=== PATIENT | female | born 1980 | race Caucasian/White ===

== ENCOUNTER 2018-09-29 14:53 | Inpatient (IN) | payer MEDICAID ==
[~2018-09-29] VITALS: Ht 165.1 cm; Wt 73.1 kg
[2018-09-29 15:09] VITALS: Ht 165.1 cm; Wt 73.1 kg
[2018-09-29 18:26] LABS: PLATELET COUNT 136 x10^3mcL (130-400)
--- NOTE | 2018-09-29 18:30 | NUR ---
ASSISTED PT TO RESTROOM, TO PROVIDE FRESH URINE SAMPLE, PT TOLERATED WELL.
[2018-09-29 18:34] LABS: RED CELL DISTRIBUTION WIDTH 26.4 % (11.5-14.5)
[2018-09-29 18:36] LABS: CARBON DIOXIDE 23.7 mmol/L (21-32); CHLORIDE SERUM 96 mmol/L (98-107); CREATININE SERUM 0.6 mg/dL (0.6-1.0); GFR1 > 60 mL/min; GLUCOSE SERUM 117 mg/dL (74-106); POTASSIUM SERUM 3.2 mmol/L (3.5-5.1); SODIUM SERUM 129 mmol/L (136-145)
--- NOTE | 2018-09-29 18:38 | NUR ---
ELIZABETH BRASWELL AT BEDSIDE FOR EKG.
--- NOTE | 2018-09-29 18:41 | NUR ---
DR AIKEN MADE AWARE OF COLOR OF PT'S URINE, STS OK TO SEND TO LAB.
[2018-09-29 18:42] LABS: ALKALINE PHOSPHATASE 80 U/L (46-116); ALT/SGPT 24 U/L (14-59); AST/SGOT 97 U/L (15-37); TOTAL PROTEIN, SERUM 7.5 g/dL (6.4-8.2)
[2018-09-29 18:43] LABS: ALBUMIN 1.9 g/dL (3.4-5.0)
[2018-09-29 18:45] LABS: BILIRUBIN TOTAL 14.1 mg/dL (0.20-1.00)
[2018-09-29 19:00] LABS: BAND NEUTROPHIL 11 % (0-10); BASOPHIL 0 % (0-2); MONOCYTE 2 % (0-7); SEGMENTED NEUTROPHILS 76 % (37-75); ovalocyte/elliptocyte 1+; rbc morphology (normal/abnorm) ABNORMAL (NORMAL); tear drop cell (dacryocyte) 1+
[2018-09-29 19:02] LABS: PLATELET MORPHOLOGY PLATELETS DECREASED
[2018-09-29 19:11] LABS: UA SPECIFIC GRAVITY <=1.005 (1.005-1.035); microscopic required? YES; urine erythrocyte NEGATIVE (NEGATIVE)
--- NOTE | 2018-09-29 19:14 | NUR ---
REPORT FROM MARTIN ENNIS TO ASSUME CARE OF PT
--- NOTE | 2018-09-29 19:15 | NUR ---
LAB AT BEDSIDE FOR BLOOD DRAW
--- NOTE | 2018-09-29 19:21 | NUR ---
REPORT GIVEN TO MARTIN ROMERO TO ASSUME CARE OF PT.
--- NOTE | 2018-09-29 19:36 | NUR ---
PT RETURNED FROM CT
--- NOTE | 2018-09-29 19:43 | NUR ---
PT AMBULATED TO RESTROOM W/STEADY GAIT. NO S/S OF DISTRESS. RESP E/U. AT BEDSIDE. PT STS SHE IS CURRENTLY IN 710 PAIN IN BILATERAL LEGS. MADE AWARE. CALL LIGHT W/IN REACH. WILL CONTINUE TO MONITOR.
--- NOTE | 2018-09-29 20:53 | NUR ---
PT LAYING ON GURNEY IN POSITION OF COMFORT. TALKING W/FAMILY ON THE PHONE. NO S/S OF DISTRESS. RESP E/U. PT REQUEST BEDSIDE COMODE. PT IS ABLE TO AMBULATE W/STEADY GAIT OFF BED. COMFORT MEASURES IMPLEMENTED. CALL LIGHT W/IN REACH. WILL CONTINUE TO MONITOR.
[2018-09-29] MEDS ORDERED: NATURAL IRON65 MG PO (21:58)
--- NOTE | 2018-09-29 22:07 | NUR ---
PT MEDICATED PER ORDER PT VERBALIZED UNDERSTANDING OF MEDICATION TEACHING. SEE EMAR FOR DETAILS.
--- NOTE | 2018-09-29 22:09 | NUR ---
PT LAYING ON GURNEY IN POSITION OF COMFORT. USING CELL PHONE. NO S/S OF DISTRESS. RESP E/U. TALKING IN FULL SENTENCES. COMFORT MEASURES IMPLEMENTED. CALL LIGHT W/IN REACH. WILL CONTINUE TO MONITOR.
[2018-09-29 22:22] LABS: MAGNESIUM 1.7 mg/dL (1.8-2.4); PHOSPHOROUS 2.7 mg/dL (2.5-4.9)
[2018-09-29 22:26] LABS: AMPHETAMINE QUAL UR NONE DETECTED (See below)
--- NOTE | 2018-09-29 22:28 | NUR ---
REPORT GIVEN TO MARTIN TUCKER TO ASSUME CARE OF PT.
--- NOTE | 2018-09-29 22:54 | NUR ---
PT TRANSFERRED TO TELE FLOOR ACCOMPANIED BY NURSE AND EMT. NO S/S OF DISTRESS. RESP E/U. PT CONNECTED TO MONITOR DURING TRANSFER. IV SITE CLEAR NO S/S OF INFILTRATION, PT DENIES PAIN OR DISCOMFORT. RN AT BEDSIDE TO ASSUME CARE OF PT.
[2018-09-29 22:59] VITALS: BP 96/58
--- NOTE | 2018-09-29 23:03 | NUR ---
RECEIVED PT FROM ED VIA MANSI. ORIENTED PT TO ROOM AND SURROUNDINGS. IV NOTED TO LAC PATENT AND INTACT. TELE 16 PLACED ON PT READING NSR. INSTRUCTED PT ON THE USE OF CALL LIGHT FOR ASSISTANCE. ENDORSED PT TO PRIMARY NURSE GARRETT
--- NOTE | 2018-09-29 23:20 | NUR ---
RESTING IN BED, NEW ADM. FROM ED. A/O X4. ABLE TO VERBALIZE NEEDS. ADMITTED WITH COMPLAINTS OF DIZZINESS, EDEMA TO BLE AND NAUSEA. KEPT COMFORTABLE IN BED. BLE WITH 3+ EDEMA WITH WEAK PEDAL PULSES. SKIN WARM AND DRY TO TOUCH, JAUNDICE IN COLOR. ABD. DISTENDED, BS ACTIVE, NO N/V NOTED AT THIS TIME. SR ON THE MONITOR, DENIES CP OR PRESSURE. HL TO LAC, INTACT AND PATENT. RESP. EVEN AND UNLABORED. ON ROOM AIR, NO ACUTE DISTRESS NOTED. AFEBRILE AND VITAL SIGNS STABLE.CALL LIGHT WITHIN REACH. WILL CONTINUE TO MONITOR.
[2018-09-29] MEDS ORDERED: LASIX20 MG PO (23:33)
--- NOTE | 2018-09-30 03:46 | NUR ---
EYES CLOSED , APPEARS ASLEEP, EASILY AROUSABLE. RESP. EVEN AND UNLABORED. NO ACUTE DISTRESS NOTED. WILL CONTINUE TO MONITOR.
[2018-09-30 06:00] VITALS: BP 108/59
--- NOTE | 2018-09-30 06:07 | NUR ---
AFEBRILE AND VITAL SIGNS STABLE. RESP. EVEN AND UNLABORED. ON ROOM AIR , NO ACUTE DISTRESS NOTED. DUE MEDS GIVEN ORDERED, JUANITA. WELL. HL TO LAC, INTACT AND PATENT. NO COMPLAINTS NOTED .VOIDING FREELY. KEPT COMFORTABLE.WILL CONTINUE TO MONITOR.
[2018-09-30 06:35] LABS: CALCIUM 7.7 mg/dL (8.5-10.1); CARBON DIOXIDE 25.8 mmol/L (21-32); CHLORIDE SERUM 97 mmol/L (98-107); CREATININE SERUM 0.6 mg/dL (0.6-1.0); GFR1 > 60 mL/min; GLUCOSE SERUM 87 mg/dL (74-106); SODIUM SERUM 134 mmol/L (136-145)
[2018-09-30 06:39] LABS: POTASSIUM SERUM 2.9 mmol/L (3.5-5.1)
[2018-09-30 06:46] LABS: PLATELET COUNT 127 x10^3mcL (130-400); RED CELL DISTRIBUTION WIDTH 26.5 % (11.5-14.5)
--- NOTE | 2018-09-30 06:48 | NUR ---
DR PICKARD MADE AWARE OF ABNORMAL LAB RESULT . (K+ 2.9) . WILL ENDORSE TO INCOMING NURSE.
--- NOTE | 2018-09-30 07:06 | NUR ---
REPORT TAKEN FROM DIGITAL MEDIA BUYER NURSE AT THE BEDSIDE, PT ALERT, AMBULATING TO THE REST ROOM, IN NAD, WILL CONTINUE TO MONITOR.
--- NOTE | 2018-09-30 07:40 | NUR ---
PHARMACY CALLED TO VERIFY MEDS FOR LOW POTTASIUM, PHARMACY REPORT THAT MEDICATION WILL BE MIXED AND BROUGHT TO MED ROOM AT 0800
[2018-09-30 09:00] LABS: ATYPICAL LYMPH 1 %; BAND NEUTROPHIL 1 % (0-10); BASOPHIL 1 % (0-2); MONOCYTE 7 % (0-7); SEGMENTED NEUTROPHILS 82 % (37-75); rbc morphology (normal/abnorm) ABNORMAL (NORMAL)
[2018-09-30 09:01] LABS: PLATELET MORPHOLOGY PLATELETS DECREASED; ovalocyte/elliptocyte 1+
[2018-09-30 09:09] VITALS: BP 96/53
[2018-09-30 13:11] VITALS: BP 113/33
--- NOTE | 2018-09-30 14:15 | NUR ---
PT REPORTS VOMITING, NAUSEA, AND ABD PAIN AT THIS TIME. PROVIDER PAGED, WILL CONTINUE TO MONITOR.
--- NOTE | 2018-09-30 14:40 | NUR ---
1415: PT REPORTED VOMITING AND NAUSEA, AND ABD PAIN. 1420 VITALS ASSESSED BP 88/55, SAT 95 ON 2L NC, PULSE 104 TEMP 991. DOCTOR CALLED TO EVALUATE PT. PT REPORTS COLDNESS, SOB, NAUSEA. 1425: VITALS ASSESSED, BP 96/46, SAT 85, PLULSE 60. PT ALERT AND ORIENTED, REPORTING HEADACHE, NAUSEA, AND SOB. DOCTOR AT THE BEDSIDE, O2 INCREASED TO 5L NC, 1000ML BOLUS STARTED PER PROVIDER ORDER. 1430: VITALS ASSESSED, BP 104/78, SAT 97 ON 5L NC, PULSE 112. PT REPORTS CHILLS, AND LOWER ABD CRAMPING. 1435: VITALS ASSESSED, BP 94/40, PULSE 106, SAT 99 ON 5L VIA NC, TEMP 99.6. PT DENIED SOB, REPORTS CRAMPS IN LOWER ABD. 1444: VITALS ASSESSED, BP 100/39, PULSE 104, SAT 100 ON 5L O2 VIA NC. PT DENIED SOB OR CHEST PAIN, LOWER ABD PAIN CONTINUES 01/26. WILL CONTINUE TO MONITOR. 1450: VITALS ASSESSED, BP 91/45, PULSE 102, SAT 99 ON 5L O2 VIA NC. PT DENIED HEADACHE, CP, AND SOB. REPORTS LOWER ABD CRAPMING. DOCTOR AWARE. WILL CONTINUE TO MONITOR.
[2018-09-30 15:39] VITALS: BP 96/26
--- NOTE | 2018-09-30 15:40 | NUR ---
REPORT TO DR. PICKARD, REGARDING THE B/P 96/26 MAP 49 AFTER NS BOLUS, MADE AWARE, STATE WAIT FOR 30 MIN, HE NEED TO TALK TO DR. DUARTE, WILL CALL BACK. CONTINUE TO MONITOR THE PT.
[2018-09-30 17:31] VITALS: BP 96/42
--- NOTE | 2018-09-30 19:10 | NUR ---
REC'D PT FROM DAY NURSE. FAMILY AT BEDSIDE. PT RESTING IN BED. AAOX4, SPEECH CLEAR, FOLLOWS COMMANDS. YELLOW SCLERA. TELE 16. DENIES CP, DIZZINESS, OR PALPITATIONS. DENIES RESP DISTRESS OR SOB. BREATHING EVEN/UNLABORED ON RA, SPO2 95%. PITTING EDEMA TO BLE, SCDS APPLIED AND ELEVATED WITH PILLOWS. ABD SOFT/DISTENDED. C/O LLQ AND RUQ TENDERNESS. DENIES PAIN AT THIS TIME. STATES SHE THOUGHT SHE STARTED MENSTRUATING BUT ACTUALLY NOT. PT PT, SHE HAS NOT VOIDED SINCE 1 PM. STATES SHE FEELS LIKE SHE NEEDS TO VOID BUT UNABLE TO WHEN SHE TRIES. WILL BLADDER SCAN. AMBULATORY. ECCHYMOSIS TO BLE. SKIN JAUNDICED. IV TO LAC FLUSHED AND PATENT, SITE WNL. CALL LIGHT WITHIN REACH, BED AT LOWEST POSITION. WILL CONTINUE TO MONITOR.
--- NOTE | 2018-09-30 19:23 | NUR ---
REPORT GIVEN TO SUMMER SCHOOL COORDINATOR NURSE AT THE BEDSIDE, PT AWAKE ALERT AND ORIENTED X 4 AT THIS TIME WITH FAMILY AT THE BEDSIDE. EVENTS REPORTS SUMMER SCHOOL COORDINATOR NURSE, WELL A PATIENTS CURRENT CONDITION. PT INFORMED OF PLAN FOR THE EVENING, AND VERBALIZED UNDERSTANDING. ROUNDS COMPLETED, CARE ENDORSED.
--- NOTE | 2018-09-30 20:00 | NUR ---
PT BLADDER SCANNED: 150 ML. PT DOES NOT FEEL THE NEED TO VOID CURRENTLY. REPORTS MILD PAIN. STATES SHE WOULD LIKE TO TRY AND VOID LATER. WILL RESCAN IF PT DOES NOT VOID WITHIN THREE HOURSE.
[2018-09-30 21:45] VITALS: BP 94/57
--- NOTE | 2018-09-30 22:31 | NUR ---
PT REPORTS VOIDING A SMALL AMT IN THE TOILET. HAT APPLIED AND INSTRUCTED TO LEAVE URINE IN THERE. C/O ABD CRAMPING 11/25. OFFERED TRAMADOL BUT PT REFUSED. STATES SHE THINKS SHE MIGHT HAVE HAD AN ALLERGIC REACTION, OR IT MAY HAVE BEEN THE HAMBURGER SHE ATE. DR. BAZAN MADE AWARE. WILL GIVE TORADOL ONCE VERIFIED BY PHARMACY. AT BEDSIDE. WILL CONTINUE TO MONITOR.
--- NOTE | 2018-10-01 00:19 | NUR ---
BLADDER RESCANNED: 25 ML. PT HAS VOIDED A TOTAL OF 3X. 2X IN THE HAT- ONLY 30 ML OUT. NO BLADDER DISTENTION NOTED AND PT DOES NOT HAVE NEED TO VOID. WILL CONTINUE TO MONITOR.
--- NOTE | 2018-10-01 02:13 | NUR ---
PT RESTING IN BED WITH EYES CLOSED. NO SIGNS OF DISTRESS OR PAIN NOTED. BREATHING EVEN/UNLABORED ON RA. AT BEDSIDE ON RECLINER. CALL LIGHT WITHIN REACH, BED AT LOWEST POSITION. WILL CONTINUE TO MONITOR.
[2018-10-01 05:20] VITALS: BP 95/43
--- NOTE | 2018-10-01 06:04 | NUR ---
PT VOIDED ONLY 30 ML THE WHOLE SHIFT. DARK NE URINE, VERY CONCENTRATED. PT STATES SHE IS MENSTRUATING, REPORTS NE COLORED BLOOD. MODERATE OUTPUT. USING A PAD, DENIES CLOTTING. BLADDER SCANNED: 10 ML. PT DOES NOT HAVE URGE TO VOID. BP 88/55, MAP 66, HR 81. C/O 7/10 ABD CRAMPING, TORADOL GIVEN. DR. BAZAN MADE AWARE OF LOW BP AND MINIMAL URINE OUTPUT. NO CHANGES IN ORDERS AT THIS TIME. CALL LIGHT WITHIN REACH, BED AT LOWEST POSITION, AT BEDSIDE. WILL ENDORSE TO DAY NURSE.
[2018-10-01 06:12] VITALS: BP 88/55
[2018-10-01 06:26] LABS: CALCIUM 7.7 mg/dL (8.5-10.1); CARBON DIOXIDE 22.7 mmol/L (21-32); CREATININE SERUM 1.4 mg/dL (0.6-1.0); MAGNESIUM 1.8 mg/dL (1.8-2.4); PHOSPHOROUS 2.6 mg/dL (2.5-4.9); POTASSIUM SERUM 3.6 mmol/L (3.5-5.1)
--- NOTE | 2018-10-01 06:37 | NUR ---
SPOKE TO DR. PICKARD. UPDATE GIVEN INCLUDING CURRENT BP 88/55 (AYSMPTOMATIC) AND MINIMAL URINE OUTPUT.
[2018-10-01 07:02] LABS: PLATELET COUNT 114 x10^3mcL (130-400); RED CELL DISTRIBUTION WIDTH 27.6 % (11.5-14.5)
--- NOTE | 2018-10-01 07:15 | NUR ---
AAO X4.DENIES ANY PAIN/DISCOMFORT.LUNGS CLEAR.ON SR ON THE MONITOR.HR=84.IV SALINE LOCKED.SKIN JAUNDICED.BLE WITH 3+ EDEMA.CALL LIGHT WITHIN REACH.INSTRUCTED TO CALL FOR ANY PAIN/DISCOMFORT.WILL CONTINUE TO MONITOR PT.
[2018-10-01 08:34] LABS: BAND NEUTROPHIL 3 % (0-10); BASOPHIL 0 % (0-2); MONOCYTE 10 % (0-7); SEGMENTED NEUTROPHILS 75 % (37-75)
[2018-10-01 08:35] LABS: rbc morphology (normal/abnorm) ABNORMAL (NORMAL); target cell (codocyte) 1+
[2018-10-01 08:36] LABS: PLATELET MORPHOLOGY PLATELETS NORMAL
[2018-10-01 08:59] VITALS: BP 93/55
[2018-10-01 12:19] LABS: BILIRUBIN DIRECT 10.68 mg/dL (0.0-0.2); TOTAL PROTEIN, SERUM 6.6 g/dL (6.4-8.2)
[2018-10-01 12:24] LABS: ALBUMIN 1.8 g/dL (3.4-5.0); BILIRUBIN TOTAL 13.54 mg/dL (0.20-1.00)
[2018-10-01 12:35] VITALS: BP 105/51
--- NOTE | 2018-10-01 14:21 | NUR ---
GAVE TORADOL ORDERED FOR C/O ABD'L PAIN AT 7/10 PAIN SCALE.
--- NOTE | 2018-10-01 14:51 | NUR ---
RECHECKED PAIN LEVEL.PT SLEEPING COMFORTABLY.NO SIGNS OF PAIN.
[2018-10-01 18:05] VITALS: BP 105/51
--- NOTE | 2018-10-01 18:54 | NUR ---
TOTAL URINE XCRKDT=137 ML.WILL ENDORSE TO NEXT SHIFT.
--- NOTE | 2018-10-01 19:30 | NUR ---
RECIEVED PATIENT AT START OF SHIFT A/O X4. PATIENT APPEARS JAUNDICE. NO SOB ON RA. LUNGS CTAB. ON TELE 16 NSR. +2 PITTING EDEMA NOTED TO BLE. PATIENT STATES SHE IS ON HER PERIOD AND IS HAVING MENSTRUAL CRAMPS 8/10 PAIN. WILL MEDICATE WITH TORADOL PER EMAR. IV IS SALINE LOCKED AND PATENT. BED LOCKED AND IN LOWEST POSITION. CALL LIGHT AND BEDSIDE TABLE WITHIN REACH. WILL CONTINUE TO MONITOR.
[2018-10-01 20:55] VITALS: BP 105/54
--- NOTE | 2018-10-01 20:59 | NUR ---
PATIENT GIVEN TORADOL IV PER EMAR FOR 8/10 PAIN FROM MENSTRUAL CRAMPS.
--- NOTE | 2018-10-02 03:54 | NUR ---
PATIENT GIVEN TORADOL 4 MG IVP FOR 9/10 PAIN FROM MENSTRUAL CRAMPS.
[2018-10-02 05:53] VITALS: BP 112/57
[2018-10-02 06:16] LABS: CALCIUM 8.4 mg/dL (8.5-10.1); CREATININE SERUM 1.3 mg/dL (0.6-1.0); MAGNESIUM 1.9 mg/dL (1.8-2.4); PHOSPHOROUS 3.1 mg/dL (2.5-4.9); POTASSIUM SERUM 3.5 mmol/L (3.5-5.1)
--- NOTE | 2018-10-02 06:31 | NUR ---
PATIENT REMOVED FROM TELE TO TAKE A SHOWER.
[2018-10-02 06:34] LABS: PLATELET COUNT 125 x10^3mcL (130-400); RED CELL DISTRIBUTION WIDTH 27.5 % (11.5-14.5)
--- NOTE | 2018-10-02 06:57 | NUR ---
PATIENT STILL IN SHOWER. IV IS WRAPPED AND WATER PROOF. WILL ENDORSE CARE TO MORNING NURSE.
--- NOTE | 2018-10-02 07:10 | NUR ---
RECIEVED PATIENT FROM METAL CASTING TRADES WORKER NURSE. PATIENT IS AWAKE, ALERT AND ORIENTED. TELE# 16, SR, HR 89. DENIES CP AND PRESSURE. BREATHING EVEN AND UNLABORED ON ROOM AIR. FLUID RESTRICT IN PLACE: 1200/DAILY. IV SITE CLEAR AND FREE OF S/S ERYTHEMA. CALL LIGHT WITHIN EASY REACH. WILL CONTINUE PLAN OF CARE.
[2018-10-02 09:03] LABS: BAND NEUTROPHIL 4 % (0-10); BASOPHIL 0 % (0-2); MONOCYTE 10 % (0-7); SEGMENTED NEUTROPHILS 74 % (37-75)
[2018-10-02 09:05] LABS: PLATELET MORPHOLOGY PLATELETS DECREASED; ovalocyte/elliptocyte 1+; rbc morphology (normal/abnorm) ABNORMAL (NORMAL); tear drop cell (dacryocyte) 1+
[2018-10-02 09:32] VITALS: BP 103/57
--- NOTE | 2018-10-02 12:48 | NUR ---
PATIENT RESTING WITH BOTH EYES CLOSED, AROUSABLE. DENIES PAIN AND DISCOMFORT. CALL LIGHT WITHIN EASY REACH. WILL CONTINUE PLAN OF CARE.
[2018-10-02 13:41] VITALS: BP 114/61
--- NOTE | 2018-10-02 18:31 | NUR ---
PATIENT RESTING IN BED WITH FAMILY AT THE BEDSIDE. DENIES PAIN AND DISCOMFORT. STRICT I/O'S REMAIN IN PLACE. CALL LIGHT WITHIN EASY REACH. WILL ENDORSE PATIENT CARE TO PRODUCT LEAD NURSE.
[2018-10-02 19:40] VITALS: BP 112/64
--- NOTE | 2018-10-02 20:00 | NUR ---
RECEIVED PT IN BED, A/O X4. ABLE TO VERBALIZE NEEDS. DENIES HEADACHE/DIZZINESS. RESP. EVEN AND UNLABORED. ON ROOM AIR, NO ACUTE DISTRESS NOTED. SR ON THE MONITOR, DENIES CP OR ANY DISCOMFORT AT THIS TIME. AFEBRILE AND VITAL SIGNS STABLE. HL TO LAC, INTACT AND PATENT. ABD. DISTENDED AND SOFT, NO N/V NOTED. AMBULATORY. ASSISTED WITH HS CARE. CALL LIGHT WITHIN REACH. WILL CONTINUE TO MONITOR.
--- NOTE | 2018-10-02 22:27 | NUR ---
COMPLAINED OF GEN. BODY PAIN , 10/26, MEDICATED WITH TORADOL IV ORDERED. WILL CONTINUE TO MONITOR.
--- NOTE | 2018-10-03 02:04 | NUR ---
EYES CLOSED, APPEAR ASLEEP, EASILY AROUSABLE. RESP. EVEN AND UNLABORED. NO ACUTE DISTRESS NOTED. WILL CONTINUE TO MONITOR.
--- NOTE | 2018-10-03 04:57 | NUR ---
AWAKE, COMPLAINING OF ABD. PAIN, 6/10, MEDICATED WITH TORADOL IV ORDERED. WILL CONTINUE TO MONITOR.
[2018-10-03 05:39] VITALS: BP 112/71
--- NOTE | 2018-10-03 06:01 | NUR ---
AFEBRILE AND VITAL SIGNS STABLE. RESP. EVEN AND UNLABORED.NO ACUTE DISTRESS NOTED. KEPT COMFORTABLE. NO COMPLAINTS NOTED AT THIS TIME. WILL CONTINUE TO MONITOR.
[2018-10-03 07:14] LABS: CALCIUM 8.5 mg/dL (8.5-10.1); CARBON DIOXIDE 24.5 mmol/L (21-32); CREATININE SERUM 1.1 mg/dL (0.6-1.0); MAGNESIUM 1.9 mg/dL (1.8-2.4); POTASSIUM SERUM 3.4 mmol/L (3.5-5.1)
--- NOTE | 2018-10-03 07:15 | NUR ---
RECEIVED PATIENT FROM PLASTER APPLICATOR NURSE. PATIENT IS AWAKE, ALERT AND ORIENTED. ON ROOM AIR, BREATHING EVEN AND UNLABORED. TELE#16, SR, HR 84. BLE ELEVATED ON PILLOWS. STRICT I/O'S IN PLACE. IV NOTED TO LAC, SALINE LOCKED, NO S/S ERYTHEMA AT SITE. CALL LIGHT WITHIN EASY REACH. WILL CONTINUE PLAN OF CARE.
[2018-10-03] MEDS ORDERED: ALD50 PO (07:31)
[2018-10-03 07:33] LABS: PLATELET COUNT 139 x10^3mcL (130-400)
[2018-10-03 07:46] VITALS: BP 112/71
--- NOTE | 2018-10-03 09:00 | NUR ---
PATIENT DC'D HOME AT THIS TIME. AWAKE, ALERT AND ORIENTED. DENIES PAIN AND DISCOMFORT. VS STABLE AT TIME OF DC. ALL DC INSTRUCTIONS GIVEN TO PATIENT. ALL NEW PRESCRIPTIONS GIVEN. ALL QUESTIONS ANSWERED REGARDING DC. ALL PERSONAL BELONGINGS TAKEN HOME WITH PATIENT. TELE BOX REMOVED AND RETURNED TO MILITARY ANALYST. IV SITE REMOVED AND CATHETER TIP INTACT. PATIENT TAKEN DOWN TO DC OFFICE BY KELLEY MEJÍA.
[2018-10-03 14:14] LABS: BAND NEUTROPHIL 9 % (0-10); METAMYELOCTE 1 % (0-2); MONOCYTE 10 % (0-7); MYELOCYTE 1 % (0-2); SEGMENTED NEUTROPHILS 60 % (37-75)
[2018-10-03 14:15] LABS: ATYPICAL LYMPH 5 %
[2018-10-03 14:16] LABS: PLATELET MORPHOLOGY PLATELETS DECREASED; ovalocyte/elliptocyte 1+; rbc morphology (normal/abnorm) ABNORMAL (NORMAL); schistocyte (helmet cell) 1+
== END 2018-10-03 09:00 | disposition home or self-care (01) | DRG 280 ==
LOC: ED 14:53 → DU 21:45
PROVIDERS: Emergency Medicine; Internal Medicine Gastroenterology; ADMIT Internal Medicine
DX: K70.11 Alcoholic hepatitis with ascites (principal); E43 Unspecified severe protein-calorie malnutrition; K52.9 Noninfective gastroenteritis and colitis, unspecified; N94.6 Dysmenorrhea, unspecified; E87.1 Hypo-osmolality and hyponatremia; E83.42 Hypomagnesemia; E87.6 Hypokalemia; D53.9 Nutritional anemia, unspecified; R74.0 Nonspecific elevation of levels of transaminase and lactic acid dehydrogenase [LDH]; F10.20 Alcohol dependence, uncomplicated; Y90.0 Blood alcohol level of less than 20 mg/100 ml; Z68.29 Body mass index [BMI] 29.0-29.9, adult; Z87.891 Personal history of nicotine dependence
CPT/HCPCS: 36600; 82962; 83880; J0696; J1885; J1940; J2543; J2916; J3430; J3480; J3490; J7030; P9047; Q0092

== ENCOUNTER 2018-10-03 14:27 | Inpatient (IN) | payer MEDICAID ==
[~2018-10-03] VITALS: Ht 157.5 cm; Wt 72.5 kg
[~2018-10-03 14:27] MED LIST: ALD50 PO; LASIX20 MG PO; NATURAL IRON65 MG PO
[2018-10-03 14:34] VITALS: Ht 157.5 cm; Wt 72.5 kg
--- NOTE | 2018-10-03 14:39 | NUR ---
PT AMBULATED TO ROOM OB, AWAITING MD MEEHAN.
--- NOTE | 2018-10-03 15:10 | NUR ---
ASSISTED DR SERNA WITH RECTAL EXAM. PT TOLERATED WITH MILD DISCOMFORT.
--- NOTE | 2018-10-03 15:11 | NUR ---
MECHANICAL STRIPER AT BEDSIDE.
--- NOTE | 2018-10-03 15:19 | NUR ---
REPORT GIVEN TO FLAVIA Mendez RN TO ASSUME CARE OF PT.
[2018-10-03 15:44] LABS: CALCIUM 8.5 mg/dL (8.5-10.1); CARBON DIOXIDE 26.4 mmol/L (21-32); CHLORIDE SERUM 98 mmol/L (98-107); GFR1 > 60 mL/min; GLUCOSE SERUM 109 mg/dL (74-106); POTASSIUM SERUM 3.7 mmol/L (3.5-5.1); SODIUM SERUM 133 mmol/L (136-145)
[2018-10-03 15:49] LABS: ALBUMIN 2.1 g/dL (3.4-5.0); ALKALINE PHOSPHATASE 71 U/L (46-116); ALT/SGPT 32 U/L (14-59); AST/SGOT 142 U/L (15-37); TOTAL PROTEIN, SERUM 7.5 g/dL (6.4-8.2)
[2018-10-03 15:56] LABS: PLATELET COUNT 145 x10^3mcL (130-400)
[2018-10-03 16:29] LABS: BAND NEUTROPHIL 0 % (0-10); BASOPHIL 0 % (0-2); MONOCYTE 5 % (0-7); SEGMENTED NEUTROPHILS 69 % (37-75)
[2018-10-03 16:30] LABS: rbc morphology (normal/abnorm) ABNORMAL (NORMAL)
[2018-10-03 16:40] LABS: schistocyte (helmet cell) 1+
--- NOTE | 2018-10-03 16:51 | NUR ---
SANDOSTATIN IV STARTED PER MD ORDER AT 25ML/HR. PT HAD EPISODE OF NAUSEA, MEDICATED WITH ZOFRAN 4MG IVP. PT IN NO DISTRESS.
--- NOTE | 2018-10-03 17:21 | NUR ---
PT LAYING IN ED GURNEY IN POSITION OF COMFORT, A/O X4, RESPS EVEN AND UNLABORED, SKIN WARM/DRY TO TOUCH, NO S/S OF DISTRESS NOTED. COMFORT MEASURES IN PLACE, CALL LIGHT WITHIN REACH, AT BEDSIDE.
[2018-10-03 17:30] LABS: microscopic required? YES; urine erythrocyte 1+ (NEGATIVE)
--- NOTE | 2018-10-03 19:18 | NUR ---
REPORT CALLED TO VIRGINIA SALAZAR. PT TO BE ADMITTED TO ICU BED 3. PT IN NO DISTRESS.
--- NOTE | 2018-10-03 19:35 | NUR ---
PT ARRIVED TO ICU BED 3 FROM ER, ACCOMPANIED BY NU EMT AND YENY RN. PT TRANSFERRED TO BED WITH NO COMPLICATIONS, PLACED ON FULL CUSTOM FEED MILL OPERATOR HELPER AND CONTINUOUS PULSE OXIMETRY. RECEIVED PT AOX4 ABLE TO RESPOND TO COMMANDS, MAKE NEEDS KNOWN, GCS=15. PUPILS 4MM BRISK RESPONSE TO LIGHT B/L, PERRLA. NO REPORTED BRIONES, SPEECH CLEAR, NO FACIAL DROOP. TRACHEA MIDLINE, NO DRAINAGE TO EENT, NO EENT COMPLAINTS. PT HAS NOTED GENERALIZED JAUNDICE TO FACE AND BODY, ICTERUS TO BILATERAL EYES.LUNG SOUNDS CTAB, CHEST RISE/FALL SYMMETRIC, E/U BREATHING, NO ACUTE RESP DISTRESS, DENIES SOB. NO COUGH NOTED. 2L NC ATTACHED TO PT.S1/S2 SOUNDS HEARD, CHEST WALL STABLE, NO REPORT OR S/S OF CHEST PAIN.SKIN COLOR GENERALIZED JAUNDICE, CAP REFILL <3 SECONDS, PULSES MODERATE TO BUE/BLE. +3 EDEMA NOTED TO BLE. SANDOSTATIN GTT INFUSING @ 50 MCG/HR FROM ER.GEN WEAKNESS. ROM ACTIVE, NO CONTRACTURES/DEFORMITIES, PT ABLE TO TURN/REPOSITION SELF. NO JOINT SWELLING/TENDERNESS.ACTIVE BOWEL SOUNDS X4 QUADRANTS, ABD SOFT/ROUND, REPORTS PAIN ON PALPATION GENERALIZED X4 QUADRANTS. PT REPORTS BM EARLIER TODAY BLOOD TINGED.PT ABLE TO VOID USING BEDSIDE COMMODE, YELLOW URINE NOTED. NO LABIAL EDEMA/DISCHARGE NOTED OR REPORTED.SKIN INTACT, WARM/DRY TO TOUCH, ECCHYMOSIS NOTED TO BLE. IV TO RIGHT WRIST 22G, LAC 20 G, PORTS PATENT, NO S/S OF INFILTRATION, DRESSING CDI. PT NPO AT THIS TIME, NO S/S OF N/V. CALL LIGHT WITHIN REACH, BED AT LOWEST SETTING, WILL CONT TO MONITOR.
[2018-10-03 19:40] LABS: RED BLOOD CELLS 2.11 M/mm3 (4.10-5.10)
[2018-10-03 19:43] LABS: IRON 131 ug/dL (50-170); TOTAL IRON BINDING CAPACITY 157 ug/dL (250-450)
[2018-10-03 19:45] VITALS: BP 95/49
--- NOTE | 2018-10-03 20:00 | NUR ---
1 UNIT PRBC INITIATED AT THIS TIME VERIFIED BY 2 RN'S. PRE VITALS 98.4, PULSE 89, NIBP 94/57, RESP 22, PO2 99%. PT EDUCATED ON S/S OF ADVERSE REACTION FOR BLOOD TRANSFUSION AND NOTIFY NURSING TEAM IF ANY REACTIONS OCCUR, PT VERBALIZES UNDERSTANDING.
--- NOTE | 2018-10-03 20:20 | NUR ---
PT REPORTING 10/10 GENERALIZED ABD PAIN, DR. GALLEGOS MADE AWARE. WILL MEDICATE PAIN MEDICATION PER EMAR.
--- NOTE | 2018-10-03 22:54 | NUR ---
Spoke to Dr. Vernell roblero and MD stated that he will do an EGD on bed 3 at 9am in the morning. Relayed pt's condition to MD at the time. Will continue to monitor.
[2018-10-03 23:00] VITALS: BP 100/59
--- NOTE | 2018-10-03 23:00 | NUR ---
1ST UNIT BLOOD TRANSFUSION DONE AT THIS TIME, POST VITALS 98.5 ORAL, PULSE 76, NIBP 100/59, RESP 20, PO2 98%. PT DENIES ANY ADVERSE REACTIONS BLOOD TRANSFUSION AT THIS TIME. DR. GALLEGOS MADE AWARE, PER DR. RAMOS OK TO GIVE 2ND UNIT ORDERED.
--- NOTE | 2018-10-03 23:50 | NUR ---
2ND UNIT PRBC INTIATED AT THIS TIME, VERIFIED BY 2 RN'S AT BEDSIDE. PRE VITALS TEMP 98.3 ORAL, PULSE 69, NIBP 105/69, RESP 17, PO2 98% ON 2L NC. PT EDUCATED ON S/S OF ADVERSE REACTIONS, AND TO REPORT TO NURSING TEAM IF ANY REACTIONS OCCUR, PT VERBALIZES UNDERSTANDING.
[2018-10-04] VITALS (8 sets, daily range): BP systolic 100–122; BP diastolic 53–72
--- NOTE | 2018-10-04 03:00 | NUR ---
UNIT PRBC FINISHED AT THIS TIME. PT REPORTS NO S/S OF ANY ADVERSE REACTIONS.
--- NOTE | 2018-10-04 05:35 | NUR ---
PT HAD APPROX 200 ML OF LIQUID DARK BLACK STOOL, NO FOUL ODOR NOTED.
[2018-10-04 05:47] LABS: PLATELET COUNT 120 x10^3mcL (130-400)
[2018-10-04 05:48] LABS: RED CELL DISTRIBUTION WIDTH 25.1 % (11.5-14.5)
[2018-10-04 05:54] LABS: BAND NEUTROPHIL 1 % (0-10); MONOCYTE 5 % (0-7); SEGMENTED NEUTROPHILS 70 % (37-75)
[2018-10-04 05:57] LABS: CALCIUM 8.1 mg/dL (8.5-10.1); CARBON DIOXIDE 23.9 mmol/L (21-32); CHLORIDE SERUM 102 mmol/L (98-107); CREATININE SERUM 0.9 mg/dL (0.6-1.0); GFR1 > 60 mL/min; GLUCOSE SERUM 77 mg/dL (74-106); MAGNESIUM 1.9 mg/dL (1.8-2.4); PHOSPHOROUS 3.6 mg/dL (2.5-4.9); POTASSIUM SERUM 4.4 mmol/L (3.5-5.1); SODIUM SERUM 135 mmol/L (136-145); rbc morphology (normal/abnorm) ABNORMAL (NORMAL); schistocyte (helmet cell) 1+
[2018-10-04 05:58] LABS: PLATELET MORPHOLOGY PLATELETS DECREASED
--- NOTE | 2018-10-04 07:04 | NUR ---
DR. PICKARD AT BEDSIDE SPEAKING WITH PT ON POC.
--- NOTE | 2018-10-04 07:10 | NUR ---
GAVE REPORT TO MARTIN MCGUIRE. UPDATES GIVEN, QUESTIONS ANSWERED. ENDORSED CARE.
--- NOTE | 2018-10-04 07:20 | NUR ---
RECEIVED PATIENT AWAKE/ALERT IN BED ABLE TO VERBALIZE NEEDS. DENIES PAIN AT THIS TIME. TELE NSR, HR 78 NOTED, IV TO LAC AND RW INTACT AND INFUSING W/ SANDOSTAIN AT 25ML/HR AND NS AT 20ML/HR. ASSIST UP TO BSC VOIDED AND HAS SMALL COFFEE BROWN STOOL NOTED. ASSIST PATIENT WITH AM CARE. CONT TO MONITOR.
--- NOTE | 2018-10-04 09:00 | NUR ---
DR. ALDRICH ARRIVE AT PATIENT BEDSIDE PREPARE FOR EGD AT THIS TIME.
--- NOTE | 2018-10-04 09:20 | NUR ---
904-TIME OUT COMPLETED WITH TEAM IN AGREEMENT. EGD STARTED AT [address] MERCADO. PT RECIEVED A TOTAL OF FENTANLY 50 MCG IVP AND VERSED 5 MG IVP. NS 1L INITIATED PER , VS REMAIN STABLE. EPI 1:10,[address] MERCADO ORDERS. EGD COMPLETED AT 09. PT TOLERATED EGD WITH WITH NO ADVERSE REACTIONS NOTED, VITAL SIGNS STABLE. NEW ORDERS RECIEVED TO D/C SANDOSTATIN DRIP, PROTONIX 40 MG BID AND CARAFATE 1 GM Q 6 HRS. ORDERS RE-BACK AND CONFIRMED. PRIMARY RN AWARE OF THE ABOVE.
--- NOTE | 2018-10-04 09:30 | NUR ---
EGD COMPLETED PATIENT SLEEPY BUT AROUSABLE; VSS. 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 SANDOSTATIN D/C ORDERED, CONT TO MONITOR.
--- NOTE | 2018-10-04 10:33 | NUR ---
PATIENT AWAKE AND ALERT; C/O 10/10 ABDOMEN PAIN. ALL PO MEDS AND NORCO 1 TAB ADMINISTERED PO FOR PAIN. SEEN PATIENT WITH RESIDENTS AT BEDSIDE, DISCUSS POC. NEEDS ATTENDED. CONT TO MONITOR.
--- NOTE | 2018-10-04 10:39 | NUR ---
DR. DUARTE, RESIDENTS, HOSE TURNER AND PRIMARY RN AT BEDSIDE FOR MORNING ROUNDS. PLAN OF CARE DISCUSSED. WILL CONT TO MONITOR.
[2018-10-04 12:29] LABS: PLATELET COUNT 135 x10^3mcL (130-400)
--- NOTE | 2018-10-04 12:31 | NUR ---
ASSISTING PATIENT UP TO BSC VOIDED, SAT AT SIDE OF BED FOR LUNCH, NO COMPLAIN. CARAFATE PO GIVEN. UPDATE PATIENT WITH EGD PROCEDURE. CONT TO MONITOR. CALL LIGHT WITHIN REACH.
[2018-10-04 12:38] LABS: RED CELL DISTRIBUTION WIDTH 26.1 % (11.5-14.5)
[2018-10-04 13:39] LABS: BAND NEUTROPHIL 3 % (0-10); BASOPHIL 0 % (0-2); MONOCYTE 7 % (0-7); MYELOCYTE 1 % (0-2); SEGMENTED NEUTROPHILS 79 % (37-75)
[2018-10-04 13:40] LABS: PLATELET MORPHOLOGY PLATELETS NORMAL; rbc morphology (normal/abnorm) ABNORMAL (NORMAL)
--- NOTE | 2018-10-04 14:39 | NUR ---
CALL TO 2 [facility] REPORT GIVEN TO ABDULLAHI SALAZAR.
--- NOTE | 2018-10-04 15:26 | NUR ---
RECEIVED PT FROM ICU VIA WHEELCHAIR, PLACED ON TELE, NO RESPRIATORY DISTRESS NOTED, DENIES PAIN, A+OX4, JANDICE SKIN THROUGHOUT BODY, JAUNDICE PUPILS, 2L NC, LUNG SOUNDS CTA, TOLERATING RA, +2 EDEMA BLE, SKIN INTACT, AMBULATORY INDEPENDENTLY, BOWEL SOUNDS ACTIVE, IV IN LAC AND R WRIST, SITES WNL, VOIDING FREELY, CALL LIGHT WITHIN REACH, FAMILY AT BEDSIDE.
--- NOTE | 2018-10-04 16:36 | NUR ---
PT COMPLAINING OF ABD PAIN, NORCO PO GIVEN, PT REPORTS HAVING 1 BM POST EGD DARK AND TARRY, CALL LIGHT WITHIN REACH.
--- NOTE | 2018-10-04 17:01 | NUR ---
DR OROZCO VIA TELEPHONE THAT PROTONIX IVP NOT AVAILABLE PER PHARMACY. DR OROZCO TELEPHONE ORDERED TO DC PROTONIX AND ORDER PRILOSEC 40 MG PO BID. ORDER READ BACK AND ENTERED.
--- NOTE | 2018-10-04 18:33 | NUR ---
PT SITTING UP IN BED EATING DINNER, TOLERATING FULL LIQUID DIET WELL, NO RESPRIATORY DSITRESS NOTED, STATES PAIN IS TOLERABLE AT THIS TIME, CALL LIGHT WITHIN REACH.
--- NOTE | 2018-10-04 19:10 | NUR ---
RECEIVED PT AWAKE ALERT AND VERBALLY RESPONSIVE.BREATHING EASY AND NON-LABORED.TOLERATING ROOMAIR @ 95%.DENIES ABDOMINAL PAIN AT THIS TIME.NO N/V NOTED.LAST BM REPORTED TO LOOSE BROWNISH STOOL.WILL CONTINUE TO MONITOR.
--- NOTE | 2018-10-05 04:37 | NUR ---
PT SLEPT WELL ALL NIGHT.MEDICATED WITH NORCO 5/325 MG PO X1 FOR ABDOMINAL PAIN WITH GOOD RELIEF.LAST BM TO LOOSE BROWNISH STOOL.ALL NEEDS MET.WILL CONTINUE TO MONITOR.
[2018-10-05 05:44] VITALS: BP 108/64
[2018-10-05 06:49] LABS: PLATELET COUNT 152 x10^3mcL (130-400)
[2018-10-05 07:25] LABS: CALCIUM 8.6 mg/dL (8.5-10.1); CARBON DIOXIDE 21.1 mmol/L (21-32); CHLORIDE SERUM 101 mmol/L (98-107); CREATININE SERUM 0.8 mg/dL (0.6-1.0); GFR1 > 60 mL/min; GLUCOSE SERUM 133 mg/dL (74-106); MAGNESIUM 1.9 mg/dL (1.8-2.4); PHOSPHOROUS 1.8 mg/dL (2.5-4.9); SODIUM SERUM 133 mmol/L (136-145)
--- NOTE | 2018-10-05 07:25 | NUR ---
RECEIVED PT IN BED. ASSESSED AND DOCUMENTED. DENIES PAIN THIS TIME. STABLE. SAFTEY PRECAUTIONS ARE IN PLACE. WILL CONTINUE MONITOR.
[2018-10-05 07:51] LABS: RED CELL DISTRIBUTION WIDTH 24.5 % (11.5-14.5)
--- NOTE | 2018-10-05 08:00 | NUR ---
INFORMED SANGITA ABOUT PHOS 1.8. NO NEW ORDER RECEIVED THIS TIME.
[2018-10-05 09:29] VITALS: BP 104/63
--- NOTE | 2018-10-05 11:00 | NUR ---
PT IS SLEEPING THIS TIME. DENIES ANY PAIN.
--- NOTE | 2018-10-05 11:24 | NUR ---
Initial Nutrition Assessment- 207T/A SHANIQUE GOTTLIEB IA HR Dx: upper GI bleed, decompensated cirrhosis PMHx: liver cirrhosis and heavy alcohol PSHx: none Labs: NA 133L, BG 133H, P 1.8L Meds: aldactone, Colace, ferrous sulfate, folic acid, Pepcid, theragran, vitamin B-1, zofran Diet: FLD PO Intake: 100% breakfast Ht: 157.48cm (62") Wt:72.5 kg (159#) BMI: 29.2 kg/m2 (overweight) IBW: 110# (50 kg) %IBW: 144 UBW: pt was unaware Age: 38/F Food Allergies: NKFA Skin: Skin and sclera jaundiced Cassius: 22 Edema: pitting to BLE GI: Last BM: 10/04 Trigger: N/V/D >3d, admitted w/potential risk diagnosis, poor PO >3d Per H&P, Patient is a 38 year old female with a PMH of liver cirrhosis and heavy alcohol use comes to the ER for coffee ground emesis and stools. The patient was discharged this morning after being admitted for bilateral lower leg edema. During this hospital stay the patient did not have any bloody or coffee ground stools/emesis, but her leg edema mildly improved. The patient was cleared by GI for discharge and was discharged home. She went home and randomly started feeling full and had 3 episodes of coffee ground emesis and dark stools so she went to the ER. Last drink was a couple weeks ago and she has a history of drinking 6-8 beers everyday since she was 14. RDN visit(10/05): Patient said that she consumed all of her breakfast this morning except milk and she does not have any N/V at this time but has loose stools. Pt is on full liquid diet and has good appetite. Per progress note (10/04) pt has GI bleed 2/2 possible varices vs ulcer with normocytic anemia, Acute ascites with early anasarca developing 2/2 heavy ETOH use, Liver Cirrhosis. Diet education for "Cirrhosis" was provided. Problem with: N: no V: no D: yes C: no Problems with: Chewing/Swallowing: no Current appetite: good Recent wt change: pt is unaware Vitamin/Supplement use: iron Special diet at home: regular (tries to avoid meat/fried foods) Physical activity: unable to access Education: Diet education was provided along with [facility] handout on "cirrhosis". Concept of small -frequent meals was discussed. Estimated Nutritional Needs Based on adjusted body weight 55 kg Energy: 8725-4774 kcal/d (30-35 kcal/kg-cirrhosis) Protein: 55-66 g/d (1.0-1.2 g/kg)-cirrhosis and preservation of lean body mass Fluid: per doctor Nutrition Diagnosis 1. Inadequate oral intake related to poor appetite as evidenced by nursing trigger of Poor PO x3d and pt on FLD currently. 2. Impaired nutrient utilization related to liver cirrhosis as evidenced by ascites Intervention 1. Recommend Ensure Enlive BID for poor PO. 2. Recommend progressing diet order to Regular, when medically appropriate/tolerated. 3. Diet education on "cirrhosis" provided. Monitor/Evaluate Goal: PO intake at least 75% of estimated needs Monitor: PO intake, Labs, GI function F/U in 3-5 days as moderate risk 10/08-
--- NOTE | 2018-10-05 11:25 | NUR ---
1. Recommend Ensure Enlive BID for poor PO. 2. Recommend progressing diet order to Regular, when medically appropriate/tolerated. 3. Diet education on "cirrhosis" provided.
[2018-10-05 11:31] LABS: BAND NEUTROPHIL 15 % (0-10); BASOPHIL 0 % (0-2); MONOCYTE 4 % (0-7); SEGMENTED NEUTROPHILS 59 % (37-75)
[2018-10-05 11:35] LABS: PLATELET MORPHOLOGY LARGE PLATELET SEEN; rbc morphology (normal/abnorm) ABNORMAL (NORMAL)
[2018-10-05 13:06] VITALS: BP 116/73
--- NOTE | 2018-10-05 14:20 | NUR ---
PT C/O ABDOMINAL PAIN AT 1320 AND NORCO PO GIVEN ORDERED. REASSESSED PT NOW AND SHE SAID SHE IS NOT IN PAIN NOW.
--- NOTE | 2018-10-05 15:43 | NUR ---
Discount pharmacy card and list to low cost medical clinics given to patient by Paul.
[2018-10-05 16:23] VITALS: BP 111/71
--- NOTE | 2018-10-05 19:15 | NUR ---
PT RESTING IN BED COMFORTABLY. DENIES PAIN THIS TIME. STABLE. GAVE REPORT TO POINT OF CARE TECHNICIAN NURSE.
--- NOTE | 2018-10-05 19:35 | NUR ---
RECEIVED PT IN BED AWAKE, ALERT,ORIENTED X4. NO SOB ON ROOM AIR. SKIN IS JAUNDICED. SHE HAS NO C/O PAIN AT THIS TIME. W/ IV TO [facility] INTACT. CALL LIGHT W/IN REACH.
[2018-10-05 20:47] VITALS: BP 103/63
--- NOTE | 2018-10-06 02:00 | NUR ---
PT ASLEEP BUT EASILY AROUSABLE. SHE HAS NO C/O DISCOMFORT AT THIS TIME.
--- NOTE | 2018-10-06 04:58 | NUR ---
PT VOMITED AND C/O ABDL PAIN 10/26. ZOFRAN 4 MG IV GIVEN FOR N/V AND NORCO 5/325 MG PO GIVEN FOR PAIN.
--- NOTE | 2018-10-06 05:32 | NUR ---
PT RESTING MORE COMFORTABLY AT THIS TIME. AFTER RECEIVING ZOFRAN AND NORCO. NO RECTAL BLEEDING NOTED . ALL NEEDS ATTENDED TO. PT COOPERATIVE W/ CARE.
[2018-10-06 05:48] VITALS: BP 102/66
[2018-10-06 06:25] LABS: PLATELET COUNT 139 x10^3mcL (130-400)
[2018-10-06 06:36] LABS: CALCIUM 9.1 mg/dL (8.5-10.1); CARBON DIOXIDE 20.9 mmol/L (21-32); CHLORIDE SERUM 98 mmol/L (98-107); CREATININE SERUM 0.8 mg/dL (0.6-1.0); GFR1 > 60 mL/min; GLUCOSE SERUM 140 mg/dL (74-106); POTASSIUM SERUM 3.9 mmol/L (3.5-5.1); SODIUM SERUM 127 mmol/L (136-145)
[2018-10-06 06:43] LABS: RED CELL DISTRIBUTION WIDTH 27.7 % (11.5-14.5)
--- NOTE | 2018-10-06 07:20 | NUR ---
RECEIVED PT FROM REAL ESTATE MANAGEMENT SPECIALIST. ASSESSED AND DOCUMENTED. DENIES PAIN THIS TIME. SAFTEY PRECAUTIONS ARE IN PLACE. WILL MONITOR.
--- NOTE | 2018-10-06 08:30 | NUR ---
INFORMED SHEET METAL ASSEMBLER ALEJANDRA ABOUT H/H=7.9, UB=953. NO NEW ORDER RECIEVED THIS TIME. PT IS STABLE.
[2018-10-06 09:55] VITALS: BP 121/75
--- NOTE | 2018-10-06 10:00 | NUR ---
PT RESTING IN BED COMFORTABLY ,STABLE. DENIES PAIN. INFORMED PT SHE IS DISCHARGED. SHE SAID SHE IS CALLING FOR RIDE.
[2018-10-06 11:48] VITALS: BP 121/75
--- NOTE | 2018-10-06 11:55 | NUR ---
DISCHARGE INSTRUCTIONS AND PRESCRIPTION GIVEN. PB SIGNED AND SENT WITH PT. IV AND TELE REMOVED. PT DENIES PAIN THIS TIME. STABLE. HOSPITALITY SPECIALIST WHEELED PT DOWN TO LOBBY ACCOMPANIED WITH PT'S . PT DC HOME.
[2018-10-06 13:11] LABS: BAND NEUTROPHIL 9 % (0-10); BASOPHIL 0 % (0-2); MONOCYTE 6 % (0-7); SEGMENTED NEUTROPHILS 70 % (37-75)
[2018-10-06 13:12] LABS: PLATELET MORPHOLOGY PLATELETS DECREASED; rbc morphology (normal/abnorm) ABNORMAL (NORMAL)
== END 2018-10-06 12:00 | disposition home or self-care (01) | DRG 280 ==
LOC: ED 14:27 → IC 17:05 → DU 17:05 → IC 19:20 → DU 10-04 14:58
PROVIDERS: Emergency Medicine; ADMIT Internal Medicine
PROC: 0W3P8ZZ Control Bleeding in Gastrointestinal Tract, Via Natural or Artificial Opening Endoscopic (ICD-10-PCS; principal; 2018-10-03)
PROC: 30233N1 Transfusion of Nonautologous Red Blood Cells into Peripheral Vein, Percutaneous Approach (ICD-10-PCS; 2018-10-03)
DX: K70.30 Alcoholic cirrhosis of liver without ascites (principal); K70.10 Alcoholic hepatitis without ascites; E43 Unspecified severe protein-calorie malnutrition; K76.6 Portal hypertension; K31.811 Angiodysplasia of stomach and duodenum with bleeding; E87.1 Hypo-osmolality and hyponatremia; D50.0 Iron deficiency anemia secondary to blood loss (chronic); K31.89 Other diseases of stomach and duodenum; F10.188 Alcohol abuse with other alcohol-induced disorder; Z68.28 Body mass index [BMI] 28.0-28.9, adult; Z87.891 Personal history of nicotine dependence
CPT/HCPCS: 43235; G0480; J0171; J0696; J2250; J2354; J2405; J2916; J3010; J3490; J7030; J7040; J7050; P9016; Q0092; Q0163